=== PATIENT | female | born 1970 | race American Indian/Alaskan Native ===

== ENCOUNTER 2017-10-12 06:13 | Inpatient (IN) | payer BC ==
--- NOTE | 2017-10-08 13:25 | Anesthesia Consultation ---
Anesthesia Consult and Med Hx - Airway Anesthetic Teeth Evaluation: Good ROM Head & Neck: Adequate Mental/Hyoid Distance: Adequate Mallampati Class: Class II - Pulmonary Exam CTA: Yes - Cardiac Exam Cardiac Exam: RRR - Pre-Operative Health Status ASA Pre-Surgery Classification: ASA2 Proposed Anesthetic Plan: General - Central Nervous System Hx Psychiatric Problems: No - Other Systems Hx Alcohol Use: Yes (occas) Hx Cancer: No
[2017-10-08 13:30] LABS: Basophils # (Auto) 0.1 K/mm3 (0.0-0.1); Basophils % (Auto) 0.8 % (0.0-1.8); Eosinophils # (Auto) 0.1 K/mm3 (0.0-0.4); Eosinophils % (Auto) 0.8 % (0.0-4.3); Hematocrit 43.4 % (30.3-42.9); Hemoglobin 14.5 gm/dl (10.1-14.3); Lymphocytes # (Auto) 1.4 K/mm3 (1.2-5.4); Lymphocytes % (Auto) 17.6 % (13.4-35.0); Mean Corpuscular HGB Conc 33 % (30-34); Mean Corpuscular Hemoglobin 32 pg (28-32); Mean Corpuscular Volume 96 fl (79-97); Monocytes # (Auto) 0.7 K/mm3 (0.0-0.8); Monocytes % (Auto) 9.3 % (0.0-7.3); Platelet Count 231 K/mm3 (140-440); Red Blood Count 4.55 M/mm3 (3.65-5.03); Red Cell Distribution Width 13.1 % (13.2-15.2)
[2017-10-08 14:43] LABS: BUN/Creatinine Ratio 13; Blood Urea Nitrogen 8 mg/dL (7-17); Hemolysis Index 5
--- NOTE | 2017-10-11 18:45 | History and Physical Report ---
History of Present Illness History of present illness: Patient has been reassessed/reevaluated. H&P has been reviewed. No interval changes. This is a 47 years old female who presents with menstrual disorder. She complains of irregular menses, heavy bleeding, dysmenorrhea, clotting, fatigue and cramping, but denies mid-cycle spotting, lack of menses, history of ovarian cysts, history of thyroid disease, history of PCOS, history of bleeding disorder and lightheadedness. Patient with uterine enlargement Patient's work up has included a transvaginal ultrasound revealing a 6 cm myoma. 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 History Uterine Surgery (not C/S): negative Operations: Tubal Ligation Hospitalizations: negative Anesthesia Complications: negative Abnormal PAP: negative Uterine Anomaly: negative ALEXANDER Exposure: negative Infertility: negative Infection History HIV Risk Eval: no Current Allergies (reviewed today): No known allergies Past Medical History: Polycystic ovarian syndrome Past Surgical History: Tubal Ligation Family History Summary: Family History of Hypertension No Family History of Breast Cancer No Family History of Cervical Cancer No Family History of Colon Cancer No Family History of Diabetes No Family History of Ovarvian Cancer Social History: Patient is Smoking History: Patient has never smoked. Risk Factors: Smoked Tobacco Use: Never smoker Smokeless Tobacco Use: Never Passive smoke exposure: no Drug use: no HIV high-risk behavior: no Alcohol use: yes Exercise: no Seatbelt use: 100 % Review of Systems General Complains of fatigue. Denies fever, chills, sweats, anorexia, weakness, malaise, weight loss and sleep disorder. Complains of menorrhagia, pelvic pain and painful periods. Denies vaginal discharge, incontinence, dysuria, hematuria, urinary frequency, amenorrhea, abnormal vaginal bleeding, genital sores, decreased libido, painful sex, urinary urgency, hot flashes, vaginal dryness, vaginal itching and vaginal odor. CV Denies chest pains, palpitations, syncope, dyspnea on exertion, orthopnea, PND and peripheral edema. Resp Denies cough, dyspnea at rest, excessive sputum, hemoptysis, wheezing and pleurisy. GI Denies nausea, vomiting, diarrhea, constipation, change in bowel habits, abdominal pain, melena, hematochezia, jaundice, gas/bloating, indigestion/ heartburn, dysphagia and odynophagia. Breast Denies left breast lump, right breast lump, nipple discharge, bloody discharge from nipple, breast pain, abnormal mammogram and breast enlargement. Psych Denies depression, anxiety, irritability and mood swings. Past History Past Medical History: other (See HPI) Past Surgical History: Other (See HPI) Social history: other (See HPI) Family history: other (See HPI) Medications and Allergies Allergies Allergy/AdvReac Type Severity Reaction Status Date / Time No Known Allergies Allergy Unverified 10/05/17 11:18 Home Medications Medication Instructions Recorded Confirmed Last Taken Type No Known Home Medications [No 10/05/17 10/05/17 Unknown History Reported Home Medications] Review of Systems Constitutional: other (See HPI) Exam - Physical Exam Narrative exam: HEENT: normocephalic, no lesions or deformities Skin no ulcers, xanthomas Chest: respiratory effort normal, clear to auscultation Breasts: skin/areolae normal, no masses, no nipple discharge, no erythema/warmth /tenderness, and axillae normal. CV: regular, normal S1-S2, no murmur, no rub, no gallop Abdomen: soft, non-tender, no masses, bowel sounds normal Musculoskeletal: grossly normal ROM in joints, no joint tenderness or muscle weakness Neuro: no gross anomalities Extremities: normal alignment, no joint enlargement, crepitus, masses or tenderness; normal tone and strength SURGICAL APPLIANCE FITTER Exams Vulva/Vagina: normal appearance, yellow discharge, lesions. No evidence of cystocele or rectocele. Cervix: normal appearance, no lesions, no discharge Uterus: enlarged 10 to 12 weeks in size Adnexae: no masses or tenderness Rectovaginal: exam defered - Constitutional Vitals: Temp Pulse Resp BP Pulse Ox 98.8 F 72 18 116/68 10/08/17 13:00 10/08/17 13:00 10/08/17 13:00 10/08/17 13:00 Results - Labs CBC & Chem 7: 10/08/17 13:05 10/08/17 13:05 Assessment and Plan - Patient Problems (1) Intramural leiomyoma of uterus Current Visit: No Status: Acute Plan to address problem: Diagnosis explained to patient . Questions answered. Discussed with patient various medical, surgical and radiological therapies common for treatment including myomectomy hysterectomy and uterine artery embolization Patient desires definitive treatment Patient desires hysterectomy Discussed risks and benefits of laparotomy, laparoscopy, vaginal and robotic assisted approaches for hysterectomies Patient desires robotic assisted total hysterectomy. Patient desires robotic assisted total hysterectomy. Consent reviewed and signed . The risks and alternatives for this surgery were reviewed with the patient. Discuss the risks of the surgery including infection, bleeding possibly heavy enough to require a blood transfusion, possible damage to bowel, bladder or ureter. Patient understand that this surgery with make her sterile.Patient understands if her ovaries are removed she will become menopausal. Also if unable to complete robitcally a laparotomy may be required. Patient advised the small risks of spreading of malignancy if morcellator is used during the surgery patient understands and approve of use if necessary Patient understands and desires to proceed. (2) Pelvic pain Current Visit: No Status: Acute (3) Menorrhagia Current Visit: No Status: Acute Qualifiers: Menorrahagia type: with regular cycle Qualified Code(s): N92.0 - Excessive and frequent menstruation with regular cycle
[~2017-10-12 06:13] MED LIST: LACTATED RINGERS 1,000 ML IV SCH; MARCAINE-EPI 0.25%-1:200,000 INFILTRATI ONE; NACL 0.9% IR ONE; NEOSPORIN GU IR ONE; VERSED IV NR
[2017-10-12] MEDS ORDERED: NACL BACTERIOSTATIC INFILTRATI ONE (06:30)
[2017-10-12] MEDS ORDERED: NEOSPORIN GU IR ONE (06:48)
[2017-10-12] MEDS ORDERED: MARCAINE 0.25% INFILTRATI ONE (06:48)
[2017-10-12] MEDS ORDERED: METHYLENE BLUE ONE (06:48)
[2017-10-12] MEDS ORDERED: XYLOCAINE MPF 2% ONE (07:04)
[2017-10-12] MEDS ORDERED: ZEMURON IV ONE (07:04)
[2017-10-12] MEDS ORDERED: SUBLIMAZE ONE (07:05)
[2017-10-12] MEDS ORDERED: DIPRIVAN 10 MG/ML IV ONE (07:05)
[2017-10-12] MEDS ORDERED: ZOFRAN ONE (07:19)
[2017-10-12] MEDS ORDERED: DECADRON ONE (07:19)
[2017-10-12] MEDS ORDERED: TORADOL ONE (07:19)
[2017-10-12] MEDS ORDERED: ANCEF/STERILE WATER 2 GM/20 ML IV NR (07:48)
[2017-10-12] MEDS ORDERED: DILAUDID ONE (09:00)
[2017-10-12] MEDS ORDERED: ROBINUL ONE (09:17)
[2017-10-12] MEDS ORDERED: BLOXIVERZ ONE (09:17)
--- NOTE | 2017-10-12 11:21 | Operative Report ---
Operative Report Operative Report: Date of procedure: 10/12/2017 Pre-operative diagnosis: Large leiomyomata with pelvic pain Post-operative diagnosis: Same Procedure name(s):Robotic Assisted Total Hysterectomy with bilateral salpingectomy Surgeon: Darvin Sharif MD Dog [employer] Instructor: Dagoberto Warren physician first assistant manager Anesthesia: General EBL: 50 mL Complications: None Findings: Large uterus with multiple leiomyomata total size approximately 16 weeks greater than 7 myomas largest approximately 6 cm in diameter. Normal ovaries bilaterally and bilaterally interrupted fallopian tubes Specimen(s): And uterus with cervix and bilateral fallopian tubes Procedure: Patient was brought to the operating room where general anesthesia was induced without difficulty. Patient was placed in the dorsal lithotomy position. Prepped and draped in the usual sterile manner for robotic procedure. Esparza catheter was placed without difficulty. Speculum was placed in the vagina. A MEDIUM V-Care Uterine manipulator was placed without difficulty. Attention was now switched to the patient's abdomen. A vertical supra-umbilicus incision was made with a scalpel. A 10-12 trocar was placed in this incision under direct visualization. Intra-abdominal placement was verified with no evidence of internal organ damage. The patient pelvic findings were noted as above. It was determined that the patient was a candidate for robotic procedure. On both sides the umbilical incision at about 8 cm, incisions were made for robotic trocar. Each robotic trocar was placed under direct visualization with no evidence of internal organ damage. Two professor of surgery ports were then placed. One 8-10 trocar was placed 2 fingerbreadths above the right iliac crest. The second [address] between the camera port and the right robotic arms port. At this time the patient was placed in extreme Trendelenburg. The da Alyson robot was then docked on the patient's left side. The trocars connected to the robot appropriately. The robotic instruments were then placed under direct visualization and no evidence of internal damage. At this time I took my place under the robotic operating gamez. Starting on the patient's right side the mesosalpinx of the tube were cauterized for mild distal to proximal tube. Bipolar cautery was placed across the proximal portion of the fallopian tube. This area was cauterized and cut the fallopian tube was then removed from the large first assistant manager port. Utero-ovarian complex was cauterized and cut. This was followed by cauterizing and cutting the right fallopian tube and right round ligament. The broad ligament was then opened. The bladder flap was formed anteriorly. The posterior broad ligament was then excised. The uterine vessels were skeletonized. The ureter was clearly seen out of the operative field. The bladder was pushed away from the anterior uterus. Attention was then switched to the patient's left side. On the patient's left side she had multiple large myomas.. Adhesions were lysed and the large myoma was partially avulsed to exposed the uterine vessels. The ureter was found to be out of the operative field. The same procedure was repeated on the left side with perform the salpingectomy followed by isolating the uterine vessels cauterized and cutting and completing the bladder flap from the left side. At this time the uterus was appearing very cyanotic. After inspecting the bladder flap insured no evidence of bladder injury, the colpotomy was then started. Incision started at 6:00 until the V-Care could be seen. This incision was extended from 6:00 to 9:00. Then from 6:00 to 3:00. Then from 9:00 to 12:00. This incision was extended from 2:00 to 12:00. At this time colpotomy was complete with no evidence of adjacent organ damage. The professor of surgery remove the uterus from through the colpotomy site. The vaginal cuff was irrigated and cauterized and found to be hemostatic. The cuff was closed with roboticly using 0 V- Lock suture. This closure was hemostatic after irrigation and Bovie. All pedicles were inspected and found to be hemostatic. The ureters were identified bilaterally and found to be functioning normal. The patient had clear urine in the Esparza catheter with no evidence of mixture with blood. Diogo and Surgicel were placed on the cuff and pedicles for postoperative hemostasis . All instruments were then removed. The large trocar sites were closed in layers and 4-0 Vicryl. The smaller incisions were closed subcuticularly with 4-0 Vicryl. The patient tolerated procedure well. She was awakened in the operating room and accompanied to the recovery room in good condition.
[2017-10-12] MEDS ORDERED: D5LR 1,000 ML IV ONE (12:30)
[2017-10-12] MEDS ORDERED: ANCEF/NS 1 GM/50 ML 1 GM/50 ML BAG IV SCH (13:49)
[2017-10-12] MEDS ORDERED: MILK OF MAGNESIA PO PRN (13:49)
[2017-10-12] MEDS ORDERED: ZOFRAN IV PRN (13:49)
[2017-10-12] MEDS: TORADOL IV SCH ×2 (15:51→22:12)
[2017-10-12] MEDS: ceFAZolin 1 GM in NACL 0.9% 20 ML IV SCH ×2 (16:09→23:36)
--- NOTE | 2017-10-12 18:09 | Event Note ---
Date: 10/12/17 Day of surgery. Discuss operative findings with patient and questions answered. Patient without fever. Patient complained of some nausea and vomiting. Continue with clear diet for now. Abdomen soft incisions intact Will ambulate in halls this evening. Good urine output. We will continue routine postoperative care.
[2017-10-12] MEDS: NORCO 5/325 PO PRN (19:20)
[2017-10-12] MEDS: D5LR 1,000 ML IV SCH (19:21)
[2017-10-12] MEDS: COLACE PO SCH (22:05)
[2017-10-13] MEDS: D5LR 1,000 ML IV SCH (02:44)
[2017-10-13] MEDS: TORADOL IV SCH (03:44)
[2017-10-13 06:54] LABS: Hematocrit 36.7 % (30.3-42.9); Hemoglobin 12.3 gm/dl (10.1-14.3)
--- NOTE | 2017-10-13 09:23 | Progress Note ---
Subjective Date of service: 10/13/17 Interval history: Patient is doing well. She had some post op nausea but this is improving. No other anesthetic related complaints. Objective - Constitutional Vitals: Vital Signs - 12hr 10/13/17 10/13/17 10/13/17 00:20 05:00 07:40 Temperature 98.9 F 98.3 F 98.6 F Pulse Rate 69 66 66 Respiratory 18 18 18 Rate Blood Pressure 102/51 Blood Pressure 112/61 105/53 [Left] O2 Sat by Pulse 99 Oximetry - Labs CBC & Chem 7: 10/13/17 06:40 10/08/17 13:05
--- NOTE | 2017-10-13 10:04 | Discharge Summary ---
Providers - Providers Date of Admission: 10/12/17 12:28 Date of discharge: 10/13/17 Attending physician: CECE HEADLEY Primary care physician: METALLOGRAPHER Hospitalization Condition: Good Procedures: RATHwith (B) salpingectomy Hospital course: Unremarkable Disposition: DC-01 TO HOME OR SELFCARE - Discharge Diagnoses (1) History of robot-assisted laparoscopic hysterectomy Status: Acute (2) Status post bilateral salpingectomy Status: Acute Core Measure Documentation - Palliative Care Palliative Care/ Comfort Measures: Not Applicable - Core Measures Any of the following diagnoses?: none Exam - Constitutional Vitals: Temp Pulse Resp BP Pulse Ox 98.6 F 66 18 102/51 99 10/13/17 07:40 10/13/17 07:40 10/13/17 07:40 10/13/17 07:40 10/13/17 07:40 General appearance: Present: no acute distress - Respiratory Respiratory effort: normal Respiratory: bilateral: CTA - Cardiovascular Rhythm: regular - Extremities Extremities: no ischemia, No edema - Abdominal General gastrointestinal: Present: soft, non-distended, normal bowel sounds Female genitourinary: Present: deferred - Integumentary Integumentary: Present: clear, warm, dry (C/D/I, no s/s infection) - Psychiatric Psychiatric: appropriate mood/affect, intact judgment & insight Plan Activity: other (No Sex, no driving) Weight Bearing Status: Full Weight Bearing Diet: regular Wound: open to air, keep clean and dry Special Instructions: no heavy lifting (>25#) Follow up with: PRIMARY CAREMD [Primary Care Provider] - 7 Days CECE HEADLEY MD [Staff Physician] - (As scheduled) Prescriptions: Ibuprofen [Motrin 800 MG tab] 800 mg PO Q6H PRN #30 tablet PRN Reason: Pain oxyCODONE /ACETAMINOPHEN [Percocet 5/325 mg] 1 - 2 tab PO Q4H PRN #30 tablet PRN Reason: Pain, Moderate
[2017-10-13] MEDS: NORCO 5/325 PO PRN (10:14)
[2017-10-13] MEDS: COLACE PO SCH (10:14)
[2017-10-13 11:25] VITALS: BP 118/63
== END 2017-10-13 14:00 | disposition home or self-care (01) | DRG 743 ==
LOC: OR 06:13 → OBSVTOIN 12:28 → OB 12:28
PROVIDERS: ADMIT Obstetrics & Gynecology; ATTEND Obstetrics & Gynecology
PROC: 0UT94ZZ Resection of Uterus, Percutaneous Endoscopic Approach (ICD-10-PCS; principal; 2017-10-12)
PROC: 0UT74ZZ Resection of Bilateral Fallopian Tubes, Percutaneous Endoscopic Approach (ICD-10-PCS; 2017-10-12)
PROC: 8E0W4CZ Robotic Assisted Procedure of Trunk Region, Percutaneous Endoscopic Approach (ICD-10-PCS; 2017-10-12)
DX: D25.1 Intramural leiomyoma of uterus (principal); N92.0 Excessive and frequent menstruation with regular cycle
CPT/HCPCS: 36415; 80048; 84703; 85014; 85018; 85025; 86850; 86900; 86901; 88302; 88307; A4217; J0690; J1100; J1170; J1885; J2250; J2405; J2704; J2710; J3010; J7120; J7121; Q9968